=== PATIENT | female | born 1980 | race Caucasian/White ===

== ENCOUNTER 2020-10-12 12:43 | Emergency (ER) | payer OTHER ==
[2020-10-12] MEDS ORDERED: DUONEB 0.5-3 MG/3 ml Neb IH ONE ×2 (14:08→14:14)
[2020-10-12] MEDS ORDERED: DELTASONE 20 MG PO ONE (14:09)
--- NOTE | 2020-10-12 14:13 | ERPHSYRPT ---
- History of Present Illness Time Seen by Provider: 10/12/20 13:10 Source: patient Exam Limitations: no limitations Patient Subjective Stated Complaint: pt here for cough for 3 days, she is a resident of a half way house and they have no airconditioning where she sleeps and she has a cat in her room. she aslo states she mowed the yard ysterday and now is coughing but they wanted her to have a covid test Triage Nursing Assessment: pt alert, resp easy, skin w.d.p, resp easy, has dry cough, no edema Physician History: Patient is a 40-year-old female with a history of asthma presents to our ED with complaints of a cough x3 days. Patient states that she is experiencing an asthma exacerbation. Patient states that she lives in a snf house. There is no air conditioning. Patient states there is a cath and yesterday the lung was removed. Patient believes a combination of the above is triggering her asthma. No associated chest pain. No nausea vomiting or diaphoresis. Symptoms are mild to moderate in intensity. 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 Patient denies fever. No diarrhea. No shortness of breath. Patient states she is otherwise healthy. She voices no other complaints or concerns at this time. Timing/Duration: day(s) (3 days) Severity: moderate Modifying Factors: Improves With: nothing Associated Symptoms: No nausea, No vomiting, No abdominal pain, No shortness of breath, No diaphoresis, No cough, No chills, No chest pain, No fever, No headaches, No syncope, No seizure, No weakness Allergies/Adverse Reactions: morphine Allergy (Verified 10/12/20 13:11) Home Medications: Albuterol Sulfate [Proair Hfa] 2 puffs DAILY 10/12/20 [History] Fluticasone Propionate [Flonase NASAL] 2 puffs DAILY 10/12/20 [History] Loratadine [Claritin] 1 ea DAILY 10/12/20 [History] Vilazodone HCl [Viibryd] 1 ea DAILY 10/12/20 [History] hydrOXYzine pamoate [Vistaril] 1 ea DAILY 10/12/20 [History] Hx Influenza Vaccination/Date Given: Yes Hx Pneumococcal Vaccination/Date Given: No Immunizations Up to Date: Yes Travel Risk - International Travel Have you traveled outside of the country in past 3 weeks: No - Coronavirus Screening Are you exhibiting any of the following symptoms?: Yes Symptoms: Cough: New Onset Close contact with a COVID-19 positive Pt in past 14-21 Days: No - Vaccine Status Have you recieved a Covid-19 vaccination: Yes Dietary Service Aide: Pfizer - Vaccination Dates Date of 2cond Vaccination (if applicable): ? - Review of Systems Constitutional: No Symptoms, No Fever, No Chills Eyes: No Symptoms Ears, Nose, & Throat: No Symptoms Respiratory: No Symptoms, No Cough, No Dyspnea Cardiac: No Symptoms, No Chest Pain, No Edema, No Syncope Abdominal/Gastrointestinal: No Symptoms, No Abdominal Pain, No Nausea, No Vomiting, No Diarrhea Genitourinary Symptoms: No Symptoms, No Dysuria Musculoskeletal: No Symptoms, No Back Pain, No Neck Pain Skin: No Symptoms, No Rash Neurological: No Symptoms, No Dizziness, No Focal Weakness, No Sensory Changes Psychological: No Symptoms Endocrine: No Symptoms Hematologic/Lymphatic: No Symptoms Immunological/Allergic: No Symptoms All Other Systems: Reviewed and Negative - Past Medical History Pertinent Past Medical History: Yes Respiratory History: Asthma - Past Surgical History Past Surgical History: Yes Gastrointestinal: Cholecystectomy Female Surgical History: Tubal Ligation - Social History Smoking Status: Former smoker Exposure to second hand smoke: No Drug Use: methamphetamines Patient Lives Alone: Yes - Female History Hx Last Menstrual Period: august 2013 Hx Now: No - Nursing Vital Signs Nursing Vital Signs: Initial Vital Signs Temperature 97.5 F 10/12/20 13:04 Pulse Rate 65 10/12/20 13:04 Respiratory Rate 16 10/12/20 13:04 Blood Pressure 120/56 10/12/20 13:04 O2 Sat by Pulse Oximetry 97 10/12/20 13:04 Pain Scale Pain Intensity 4 - Physical Exam General Appearance: no apparent distress, alert Eye Exam: PERRL/EOMI, eyes nml inspection Ears, Nose, Throat Exam: normal ENT inspection, TMs normal, pharynx normal, moist mucous membranes Neck Exam: normal inspection, non-tender, supple, full range of motion Respiratory Exam: normal breath sounds, lungs clear, other (Coarse breath sounds. No obvious wheezing. No respiratory distress. Dry cough observed.), No respiratory distress Cardiovascular Exam: regular rate/rhythm, normal heart sounds, normal peripheral pulses Gastrointestinal/Abdomen Exam: soft, normal bowel sounds, No tenderness, No mass Back Exam: normal inspection, normal range of motion, No CVA tenderness, No vertebral tenderness Extremity Exam: normal inspection, normal range of motion, pelvis stable Neurologic Exam: alert, oriented x 3, cooperative, normal mood/affect, nml station & gait, sensation nml, No motor deficits Skin Exam: normal color, warm, dry, No rash Lymphatic Exam: No adenopathy SpO2 Interpretation: normal SpO2: 97 O2 Delivery: Room Air - Course Nursing assessment & vital signs reviewed: Yes Ordered Tests: Active Orders 24 hr Category Date Time Status Respiratory Therapy Assessment DAILY RT 10/12/20 14:19 Active Medication Summary Discontinued Medications Generic Name Dose Route Start Last Admin Trade Name Ella PRN Reason Stop Dose Admin Albuterol/Ipratropium 3 ml 10/12/20 14:08 10/12/20 14:15 Duoneb 0.5-3 Mg/3 Ml Neb IH 10/12/20 14:09 3 ml STAT ONE Administration Albuterol/Ipratropium Confirm 10/12/20 14:14 Duoneb 0.5-3 Mg/3 Ml Neb Administered 10/12/20 14:15 Dose 3 ml IH .STK-MED ONE Prednisone 60 mg 10/12/20 14:09 10/12/20 14:24 Deltasone 20 Mg PO 10/12/20 14:10 60 mg STAT ONE Administration Prednisone Confirm 10/12/20 14:23 Deltasone 20 Mg Administered 10/12/20 14:24 Dose 60 mg .ROUTE .STK-MED ONE - Progress Progress: improved Progress Note: Patient reassessed. Symptoms resolved after nebulizer treatment. Patient received a dose of prednisone in our ED. Patient states she ran out of her albuterol nebulizer vials at home. Patient requesting a refill. Covid test completed. Results pending. Will discharge patient at this time. Vital stable. Patient voices no other complaints concerns at this time. She agrees to follow-up with her primary care doctor within 48 hours for reevaluation. 10/12/20 14:39 Counseled pt/family regarding: diagnosis, need for follow-up - Departure Departure Disposition: Home Clinical Impression: Cough, Asthma, Medication refill Condition: Stable Critical Care Time: No Referrals: DOCTOR,NO FAMILY [Primary Care Provider] - MIGUEL ALFARO [ACTIVE STAFF] - Additional Instructions: Discharge/Care Plan ELTON ROGERS was seen on 10/12/20 in the Emergency Room. The patient was counseled regarding Diagnosis,Lab results, Imaging studies, need for follow up and when to return to the Emergency Room. Prescriptions given: Discharge Note I have spoken with the patient and/or caregivers. I have explained the patient's condition, diagnosis and treatment plan based on the information available to me at this time. I have answered the patient's and/or caregiver's questions and addressed any concerns. The patient and/or caregivers have as good understanding of the patient's diagnosis, condition and treatment plan as can be expected at this point. The vital signs have been stable. The patient's condition is stable and appropriate for discharge from the emergency department. The patient will pursue further outpatient evaluation with the primary care physician or other designated or consulting physician as outlined in the discharge instructions. The patient and/or caregivers are agreeable to this plan of care and follow-up instructions have been explained in detail. The patient and/or caregivers have received these instruction. The patient/and or caregivers are aware that any significant change in condition or worsening of symptoms should prompt an immediate return to this or the closest emergency department or call 911. Prescriptions: Prednisone 10 mg [Deltasone 10 mg] 40 mg PO DAILY 3 Days #12 tablet Albuterol 2.5 mg/3 ml Neb [Proventil 2.5 mg/3 ml Neb] 2.5 mg IH Q4H #1 box
[2020-10-12] MEDS ORDERED: DELTASONE 20 MG ONE (14:23)
[2020-10-12 14:56] VITALS: O2SAT 98
[2020-10-12 15:10] VITALS: BP 124/69; PULSE 72
== END 2020-10-12 15:10 | disposition home or self-care (01) ==
LOC: ED 12:43
DX: R05 Cough (principal); J45.909 Unspecified asthma, uncomplicated; Z76.0 Encounter for issue of repeat prescription
CPT/HCPCS: 94640; 99283; U0003; A9270-GY